=== PATIENT | female | born 1995 | race Caucasian/White ===

== ENCOUNTER 2022-11-20 18:48 | Emergency (ER) | payer OTHER ==
[~2022-11-20] VITALS: Ht 165 cm; Wt 91.6 kg
[2022-11-20 19:31] VITALS: BP 122/83
[2022-11-20] MEDS ORDERED: ORPHENADRINE 60 MG/2 ML (NORFLEX) AMP (ED ONLY) IM ONE (21:30)
[2022-11-20] MEDS ORDERED: KETOROLAC 60 MG/2 ML VIAL IM ONE (21:30)
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
[2022-11-20] MEDS ORDERED: TRM50T PO (22:56)
[2022-11-20] MEDS ORDERED: METH-731 PO (22:56)
== END 2022-11-20 23:14 | disposition home or self-care (01) ==
LOC: ER 18:50
DX: S46.912A Strain of unspecified muscle, fascia and tendon at shoulder and upper arm level, left arm, initial encounter (principal); E03.9 Hypothyroidism, unspecified; Z28.310 Unvaccinated for COVID-19; Z79.899 Other long term (current) drug therapy; V89.2XXA Person injured in unspecified motor-vehicle accident, traffic, initial encounter; Y92.410 Unspecified street and highway as the place of occurrence of the external cause